=== PATIENT | female | born 1990 ===

== ENCOUNTER 2018-06-12 17:58 | Emergency (ER) | payer OTHER ==
[2018-06-12 17:59] VITALS: BMI 39.3
[2018-06-12 18:06] VITALS: BP 128/86; PULSE 95; RESP 21; TEMP 98; O2SAT 97
--- NOTE | 2018-06-12 18:14 | ED PDOC ---
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 Patient denies any recent injury, falls, trauma, or urinary symptoms. She states her back pain occasionally radiates down to her left leg. Patient reports applying a Lidoderm patch to her lower back without relief of symptoms. PMD: None Past Medical History Reviewed: Historical Data, Nursing Documentation, Vital Signs Vital Signs: Last Vital Signs Temp 98.0 F 06/12/18 18:01 Pulse 95 H 06/12/18 18:01 Resp 21 06/12/18 18:01 BP 128/86 06/12/18 18:01 Pulse Ox 97 06/12/18 18:01 - Medical History PMH: No Chronic Diseases - Surgical History Surgical History: (x2) - Family History Family History: States: No Known Family Hx - Living Arrangements Living Arrangements: With Family - Social History Current smoker - smoking cessation education provided: No Alcohol: None Drugs: Denies - Home Medications Home Medications: Ambulatory Orders Medication Instructions Recorded Vit37/Iron/Folic Acid 1 tab PO DAILY 05/08/15 [Prenata Chewable Tablet] Ferrous Sulfate [Feosol] 324 mg PO DAILY #0 ect 05/11/15 Amoxicillin 875 mg PO BID #20 tablet 11/03/16 Ibuprofen [Motrin] 400 mg PO Q6 PRN #20 tab 11/03/16 Cyclobenzaprine [Cyclobenzaprine 10 mg PO TID PRN #20 tab 06/12/18 HCl] Naproxen [Naprosyn] 500 mg PO BID #20 tab 06/12/18 Prednisone 50 mg PO DAILY #5 tablet 06/12/18 - Allergies Allergies/Adverse Reactions: Allergies Allergy/AdvReac Type Severity Reaction Status Date / Time No Known Allergies Allergy Verified 06/12/18 18:01 Review of Systems ROS Statement: Except As Marked, All Systems Reviewed And Found Negative Constitutional: Negative for: Fever Cardiovascular: Negative for: Chest Pain Gastrointestinal: Negative for: Vomiting, Abdominal Pain Genitourinary Female: Negative for: Dysuria, Frequency, Incontinence, Hematuria Musculoskeletal: Positive for: Back Pain (occasionally radiates to left leg) Physical Exam - Reviewed Nursing Documentation Reviewed: Yes Vital Signs Reviewed: Yes - Physical Exam Appears: Positive for: Well, Non-toxic, No Acute Distress Skin: Positive for: Normal Color. Negative for: Rash Eye Exam: Positive for: Normal appearance Cardiovascular/Chest: Positive for: Regular Rate, Rhythm Respiratory: Positive for: Normal Breath Sounds. Negative for: Respiratory Distress Gastrointestinal/Abdominal: Positive for: Soft. Negative for: Tenderness Back: Positive for: Other (tenderness and muscle spasms to lower lumbar region, (-) step-off, negative bilatral straight leg raise). Negative for: L CVA Tenderness, R CVA Tenderness Extremity: Positive for: Normal ROM Neurologic/Psych: Positive for: Alert, Oriented, Gait (steady) - Laboratory Results Urine POC: Negative Urine dip results: Negative for: Leukocyte Esterase, Blood, Nitrate, Ketones, Glucose, Bilirubin, Protein - ECG O2 Sat by Pulse Oximetry: 97 (RA) Pulse Ox Interpretation: Normal - Other Rad LS Spine X-ray X-Ray: Interpreted by Me, Viewed By Me X-Ray Interpretation: no fx, no dis, NAP Medical Decision Making Medical Decision Makin Impression: 27 year old female with back pain Plan: -Urine dip -Urine test -Flexeril 10mg PO -Toradol 30mg IM -Tylenol 975mg PO -X-Ray Lumbar Spine AP/LAT Patient feels better after meds given in ED. Rx given for prednisone, naprosyn and flexeril. Patient was referred to clinic for follow up. Scribe Attestation: Documented by Slim Perez, acting as a scribe for Elsy Vizcaino PA-C. Provider Scribe Attestation: All medical record entries made by the scribe were at my direction and personally dictated by me. I have reviewed the chart and agree that the record accurately reflects my personal performance of the history, physical exam, medical decision making, and the department course for this patient. I have also personally directed, reviewed, and agree with the discharge instructions and disposition. Disposition - Clinical Impression Clinical Impression: Back strain - Patient ED Disposition Is Patient to be Admitted: No Counseled Patient/Family Regarding: Studies Performed, Diagnosis, Need For Followup, Rx Given - Disposition Referrals: [facility] [Outside] Disposition: Routine/Home Disposition Time: 19:02 Condition: STABLE Additional Instructions: Take rx meds as directed. Follow up with clinic in 2-3 days. Prescriptions: Cyclobenzaprine [Cyclobenzaprine HCl] 10 mg PO TID PRN #20 tab PRN Reason: Muscle Spasm Naproxen [Naprosyn] 500 mg PO BID #20 tab Prednisone 50 mg PO DAILY #5 tablet Instructions: Low Back Pain in Adults, Muscle Strain, Back Exercises Forms: [facility] [employer] (Korean) Print Language: BELIZEAN
--- NOTE | 2018-06-13 10:09 | RAD ---
Date of service: 06/12/2018 PROCEDURE: Radiographs of the Lumbar Spine. HISTORY: low pain back COMPARISON: No prior. FINDINGS: BONES: Normal alignment. No listhesis. No fracture. DISC SPACES: Unremarkable. OTHER FINDINGS: None. IMPRESSION: Unremarkable radiographs of the lumbar spine.
== END 2018-06-12 19:18 | disposition home or self-care (01) ==
LOC: H.ER 17:58
DX: S39.012A Strain of muscle, fascia and tendon of lower back, initial encounter (principal); X58.XXXA Exposure to other specified factors, initial encounter
CPT/HCPCS: 72100; 81025; 96372; 99283; J1885

== ENCOUNTER 2018-07-16 14:15 | Emergency (ER) | payer OTHER ==
[2018-07-16 14:15] VITALS: BMI 39.3
[2018-07-16 14:25] VITALS: TEMP 97.9
[2018-07-16] MEDS ORDERED: Naproxen 500 MG TAB PO STA (14:52)
[2018-07-16] MEDS ORDERED: Naproxen 500 MG TAB PO ONE (15:05)
--- NOTE | 2018-07-16 15:08 | ED PDOC ---
HPI: Back Time Seen by Provider: 07/16/18 14:34 Chief Complaint (Nursing): Back Pain Chief Complaint (Provider): Right sided low back pain x 1 day History Per: Patient History/Exam Limitations: no limitations Onset/Duration Of Symptoms: Days Current Symptoms Are (Timing): Still Present Full Body Front + Back: 1 - Pain Additional Complaint(s): 27 yo obese female with history of low back pain presents for evaluation of right lower back pain since last night. Pt states that she has similar one month ago and has been stretching almost everyday. Pt states she took naproxen and flexeril last night after the pain began and it did not help so she did not take it again. Pt denies urinary symptoms. Pt reports radiation down the right leg intermittently with movement. No fever/chills. No bladder or bowel incontinence. Past Medical History Reviewed: Historical Data, Nursing Documentation, Vital Signs Vital Signs: Last Vital Signs Temp 97.9 F 07/16/18 14:23 Pulse 91 H 07/16/18 14:23 Resp 16 07/16/18 14:23 BP 131/80 07/16/18 14:23 Pulse Ox 100 07/16/18 14:23 - Medical History PMH: No Chronic Diseases - Surgical History Surgical History: (x2) - Family History Family History: States: Unknown Family Hx - Living Arrangements Living Arrangements: With Family - Social History Current smoker - smoking cessation education provided: No - Immunization History Hx Tetanus Toxoid Vaccination: No - Home Medications Home Medications: Ambulatory Orders Medication Instructions Recorded Vit37/Iron/Folic Acid 1 tab PO DAILY 05/08/15 [Prenata Chewable Tablet] Ferrous Sulfate [Feosol] 324 mg PO DAILY #0 ect 05/11/15 Amoxicillin 875 mg PO BID #20 tablet 11/03/16 Ibuprofen [Motrin] 400 mg PO Q6 PRN #20 tab 11/03/16 Cyclobenzaprine [Cyclobenzaprine 10 mg PO TID PRN #20 tab 06/12/18 HCl] Naproxen [Naprosyn] 500 mg PO BID #20 tab 06/12/18 Prednisone 50 mg PO DAILY #5 tablet 06/12/18 oxyCODONE/Acetaminophen [Percocet 1 ea PO Q6H PRN #15 tab 07/16/18 5/325 mg Tab] - Allergies Allergies/Adverse Reactions: Allergies Allergy/AdvReac Type Severity Reaction Status Date / Time No Known Allergies Allergy Verified 06/12/18 18:01 Review of Systems ROS Statement: Except As Marked, All Systems Reviewed And Found Negative Constitutional: Negative for: Fever, Chills Cardiovascular: Negative for: Chest Pain Respiratory: Negative for: Cough Gastrointestinal: Negative for: Nausea, Vomiting, Abdominal Pain Genitourinary Female: Negative for: Dysuria, Frequency, Incontinence Musculoskeletal: Positive for: Back Pain Skin: Negative for: Rash Physical Exam - Reviewed Nursing Documentation Reviewed: Yes Vital Signs Reviewed: Yes - Physical Exam Appears: Positive for: Well, Non-toxic, No Acute Distress Head Exam: Positive for: ATRAUMATIC, NORMAL INSPECTION, NORMOCEPHALIC Skin: Positive for: Normal Color, Warm, DRY Eye Exam: Positive for: Normal appearance ENT: Positive for: Normal ENT Inspection Neck: Positive for: Normal, Painless ROM Cardiovascular/Chest: Positive for: Regular Rate, Rhythm Respiratory: Positive for: Normal Breath Sounds. Negative for: Accessory Muscle Use, Respiratory Distress Back: Positive for: Normal Inspection, Decreased ROM, Muscle Spasm, Other ((+) right leg raise ) Extremity: Positive for: Normal ROM Neurologic/Psych: Positive for: Alert, Oriented - ECG O2 Sat by Pulse Oximetry: 100 Medical Decision Making Medical Decision Making: XR of LS last month normal. PO flexeril, PO naproxen and IM solumedrol in ER Pt states she does not feel better. Disposition - Clinical Impression Clinical Impression: Sciatica - Patient ED Disposition Is Patient to be Admitted: No - Disposition Disposition: Routine/Home Disposition Time: 17:10 Condition: STABLE Prescriptions: oxyCODONE/Acetaminophen [Percocet 5/325 mg Tab] 1 ea PO Q6H PRN #15 tab PRN Reason: Pain, Severe (8-10) Instructions: Sciatica (DC) Forms: [facility] (Finnish)
[2018-07-16] MEDS ORDERED: Oxycodone/Acetaminophen 5/325 mg Tab PO STA (16:12)
[2018-07-16] MEDS ORDERED: Oxycodone/Acetaminophen 5/325 mg Tab ONE (16:23)
[2018-07-16 17:23] VITALS: BP 122/77; PULSE 94; RESP 18; O2SAT 99
== END 2018-07-16 17:31 | disposition home or self-care (01) ==
LOC: H.ER 14:15
DX: M54.31 Sciatica, right side (principal); E66.9 Obesity, unspecified
CPT/HCPCS: 81025; 96372; 99283; J2930